=== PATIENT | male | born 1945 | race Caucasian/White ===

== ENCOUNTER → 2016-07-15 | Day surgery (SDC) | payer OTHER, MEDICARE | END | disposition home or self-care (01) | LOC: BMCIMAGING 08:16 | PROVIDERS: ATTEND Urology | PROC: BV49ZZZ Ultrasonography of Prostate and Seminal Vesicles (ICD-10-PCS; principal; 2016-07-15) | DX: R97.20 Elevated prostate specific antigen [PSA] (principal) ==